=== PATIENT | male | born 1980 | race African-American/Black ===

== ENCOUNTER 2016-12-03 22:09 | Emergency (ER) | payer MEDICAID ==
[~2016-12-03] VITALS: Ht 182.9 cm; Wt 97.5 kg
[~2016-12-03 22:09] MED LIST: ANUSOL-HC CREAM30 GM RECTAL; ATARAX25 MG ORAL; CLINDAMYCIN HC150 MG ORAL; COLACE100 MG ORAL; ELIMITE 5% CREA60 GM TOPIC; MIRALAX17 GM ORAL; NYQUIL D COLD295 M1 PO; PODOFILOX3.5 ML TP; PREDNISONE20 MG ORAL; RECTICARE30 GM TP; TRUVADA 200 MG1 EAC1 ORAL
[2016-12-03 22:38] VITALS: BP 123/75
[2016-12-03] MEDS ORDERED: IBUPROFEN600 MG ORAL (22:48)
[2016-12-03 22:55] VITALS: BP 133/79
--- NOTE | 2016-12-03 22:59 | Emergency Room Report ---
History of Present Illness General Chief Complaint: Sore Throat Source: Patient Present Illness HPI 36YO M-F transgender patient with 2 days of sore throat, wants to "make sure its not infected." Denies assoc URI symptoms, difficulty controlling drooling, fever/chills, cough, chest pain, SOB, neck pain. Took motrin yesterday. Allergies: Coded Allergies: No Known Allergies (Verified , 12/03/16) Patient History Past Medical History: HIV Past Surgical History: none Pertinent Family History: none Social History: Denies: alcohol use, drug use, smoking Immunizations: UTD Reviewed Nursing Documentation: PMH: Agreed, PSxH: Agreed Nursing Documentation-PMH Hx Cardiac Problems: Yes - HIV Review of Systems All Other Systems: negative except mentioned in HPI Physical Exam Vital Signs Date Time Temp Pulse Resp B/P Pulse Ox O2 Delivery O2 Flow Rate FiO2 12/03/16 22:12 99.5 74 20 123/75 97 Room Air Sp02 EP Interpretation: reviewed, normal General Appearance: normal inspection, well appearing, no apparent distress, alert Head: atraumatic ENT: normal ENT inspection, hearing grossly normal, normal pharynx, no angioedema, normal voice, TMs + canals normal, uvula midline, moist mucus membranes Neck: normal inspection, full range of motion, supple, no bony tend Respiratory: normal inspection, lungs clear, normal breath sounds, no respiratory distress, no retraction, no wheezing Cardiovascular #1: regular rate, rhythm, no edema Gastrointestinal: normal inspection, normal bowel sounds, non tender, soft, no guarding, no hernia Genitourinary: no CVA tenderness Musculoskeletal: normal inspection, back normal, normal range of motion, Kalyan' s Sign negative Neurologic: normal inspection, alert, oriented x3, responsive, hearing aid repairer III-XII nml as tested, motor strength/tone normal, speech normal Psychiatric: normal inspection, judgement/insight normal, mood/affect normal Skin: normal inspection, normal color, no rash Lymphatic: normal inspection Medical Decision Making Diagnostic Impression: Primary Impression: Sore throat ER Course [id number] with 2 days sore throat No obvious source of bacterial infection in oropharynx, ears, lungs, skin, abdomen on exam VSS Low suspicion for acute strep or other bacterial process PMD followup closely DC home Understands to return for worsening symptoms - Ibuprofen as needed for sore t hroat Last Vital Signs Date Time Temp Pulse Resp B/P Pulse Ox O2 Delivery O2 Flow Rate FiO2 12/03/16 22:12 99.5 74 20 123/75 97 Room Air Status: improved Disposition: HOME, SELF-CARE Condition: Improved Scripts Ibuprofen* (MOTRIN*) 600 Mg Tablet 600 MG ORAL THREE TIMES A DAY for sore throat for 7 Days, #30 TAB 0 Refills Prov: JAYDEN LIPSCOMB M.D. 12/03/16 Patient Instructions: Sore Throat JAYDEN LIPSCOMB M.D. Dec 03, 2016 22:59
== END 2016-12-03 23:15 | disposition home or self-care (01) ==
LOC: EMR 22:58
DX: R07.0 Pain in throat (principal)
CPT/HCPCS: 99283

== ENCOUNTER 2017-01-24 22:01 | Emergency (ER) | payer MEDICAID ==
[~2017-01-24] VITALS: Ht 182.9 cm; Wt 113.4 kg
[~2017-01-24 22:01] MED LIST changes: +IBUPROFEN600 MG ORAL
[2017-01-24 22:15] VITALS: BP 132/91
[2017-01-24] MEDS ORDERED: CLINDAMYCIN HC300 MG ORAL (22:37)
--- NOTE | 2017-01-24 22:38 | Emergency Room Report ---
History of Present Illness General Chief Complaint: Toothache Source: Patient Present Illness HPI Is a 36-year-old transgender female with a history HIV. She presents with chief complaint of gum irritation. Been ongoing for months. No bleeding. No fever chills but no nausea no vomiting. She said the last time something like this happened she had thrush. Denies any other complaint. Has not seen a dentist. Allergies: Coded Allergies: No Known Allergies (Verified , 12/03/16) Patient History Past Medical History: see triage record, old chart reviewed, HIV Past Surgical History: other Pertinent Family History: none Social History: Denies: smoking Immunizations: other Reviewed Nursing Documentation: PMH: Agreed, PSxH: Agreed Nursing Documentation-PMH Past Medical History: No Stated History Hx Cardiac Problems: Yes - HIV Review of Systems Eye: Denies: blurred vision, eye pain ENT: Denies: ear pain, nose congestion, throat swelling Respiratory: Denies: cough, shortness of breath Cardiovascular: Denies: chest pain, palpitations Gastrointestinal: Denies: abdominal pain, diarrhea, nausea, vomiting Musculoskeletal: Denies: back pain, joint pain Skin: Denies: rash Neurological: Denies: headache, numbness Endocrine: Denies: increased thirst, increased urine Hematologic/Lymphatic: Denies: easy bruising All Other Systems: negative except mentioned in HPI Physical Exam Vital Signs Date Time Temp Pulse Resp B/P Pulse Ox O2 Delivery O2 Flow Rate FiO2 01/24/17 22:10 99.0 68 14 132/91 100 Room Air vitals normal Sp02 EP Interpretation: reviewed, normal General Appearance: well appearing, no apparent distress, alert Head: normocephalic, atraumatic Eyes: bilateral eye EOMI, bilateral eye PERRL ENT: hearing grossly normal, normal pharynx, other - No thrush. Gums are mildly irritated. There is a lot of plaque and yani on her teeth. Neck: full range of motion, supple, no meningismus Respiratory: chest non-tender, lungs clear, normal breath sounds Cardiovascular #1: regular rate, rhythm, no murmur Gastrointestinal: normal bowel sounds, non tender, no mass, no organomegaly, no bruit, non-distended Musculoskeletal: back normal, gait/station normal, normal range of motion Psychiatric: mood/affect normal Skin: warm/dry Medical Decision Making Diagnostic Impression: Primary Impression: Gingivitis, acute ER Course Patient with gingivitis. I see no evidence of thrush. We'll discharge home. Will refer to dentist. Last Vital Signs Date Time Temp Pulse Resp B/P Pulse Ox O2 Delivery O2 Flow Rate FiO2 01/24/17 22:10 99.0 68 14 132/91 100 Room Air Status: improved Disposition: HOME, SELF-CARE Condition: Stable Scripts Clindamycin Hcl (CLINDAMYCIN HCL) 300 Mg Capsule 300 MG ORAL THREE TIMES A DAY, #21 CAP Prov: FREDY ROTHMAN M.D. 01/24/17 Additional Instructions: Followup with your dentist HAR[facility]. Return if symptom worsen. FREDY ROTHMAN M.D. Jan 24, 2017 22:38
[2017-01-24 22:50] VITALS: BP 132/91
== END 2017-01-24 22:50 | disposition home or self-care (01) ==
LOC: EMR 22:25
DX: K05.00 Acute gingivitis, plaque induced (principal)
CPT/HCPCS: 99283

== ENCOUNTER 2017-02-04 21:28 | Emergency (ER) | payer MEDICAID ==
[~2017-02-04] VITALS: Ht 182.9 cm; Wt 90.7 kg
[~2017-02-04 21:28] MED LIST changes: +CLINDAMYCIN HC300 MG ORAL
[2017-02-04] MEDS ORDERED: NKM (21:45)
--- NOTE | 2017-02-04 22:09 | Emergency Room Report ---
History of Present Illness General Chief Complaint: Skin Rash/Abscess Source: Patient Present Illness HPI Patient presents with skin rash which has worsened over the last day. It has been present for a week. It itches. It is on the arms and torso. It is raised. He has a h/o psoriasis and he feels this is not the cause. He is worried about possible scabies. H/O HIV and non-compliant on meds for several months. Has appointment for later next week. No fevers, URI, cough, diarrhea, dysuria. No recent change in soaps, diet. Tetanus UTD. Allergies: Coded Allergies: No Known Allergies (Verified , 12/03/16) Patient History Past Medical History: see triage record Social History: Denies: drug use Social History Narrative transvestite. Recent move from [place] Reviewed Nursing Documentation: PMH: Agreed, PSxH: Agreed Review of Systems All Other Systems: negative except mentioned in HPI Physical Exam Vital Signs Date Time Temp Pulse Resp B/P Pulse Ox O2 Delivery O2 Flow Rate FiO2 02/04/17 21:43 98.4 67 14 127/88 99 Room Air Sp02 EP Interpretation: reviewed, normal General Appearance: well appearing, no apparent distress, GCS 15 Head: normocephalic, atraumatic Eyes: bilateral eye PERRL, bilateral eye normal inspection ENT: hearing grossly normal, normal pharynx, normal voice, moist mucus membranes Neck: full range of motion, supple Respiratory: no respiratory distress, speaking full sentences Cardiovascular #1: regular rate, rhythm Cardiovascular #2: 2+ radial (L) Gastrointestinal: normal inspection Musculoskeletal: digits/nails normal, gait/station normal, normal range of motion Neurologic: alert, oriented x3, normal gait, grossly normal Psychiatric: mood/affect normal Skin: rash - maculopapular rash forearms and trunk. Areas of scale ( suggestive parts = psoriatic), not in skin creased or between fingers Medical Decision Making Diagnostic Impression: Primary Impression: Psoriasis Additional Impressions: Possible scabies hiv non-compliant ER Course Patient with rash. DDx: scabies, allergic, psoriasis, cellulitis, HIV related amongst others. Some lesions psoriatic. No evidence of cellulitis. Will treat with prednisone and benadryl and prescribe Elimite. Discussed need for return to HIV meds. Also discussed might need biopsy if not better with treatment. Patient stable for outpatient observation and treatment. Last Vital Signs Date Time Temp Pulse Resp B/P Pulse Ox O2 Delivery O2 Flow Rate FiO2 02/04/17 22:36 98.4 14 127/88 99 Room Air 02/04/17 21:43 67 Status: improved Disposition: HOME, SELF-CARE Condition: Improved Scripts Permethrin* (ELIMITE*) 60 Gm Cream..g. 1 APPLIC TOPIC ONCE, #2 TUBE 0 Refills Apply cream from head to toe; leave on for 8-14 hours before washing off with water Prov: Ricardo Sterling M.D. 02/04/17 Diphenhydramine Hcl* (BENADRYL*) 25 Mg Capsule 25 MG ORAL Q6H Y for Itching, #20 CAP Prov: Ricardo Sterling M.D. 02/04/17 Prednisone* (PREDNISONE*) 20 Mg Tablet 20 MG ORAL DAILY for 5 Days, TAB 0 Refills Prov: Ricardo Sterling M.D. 02/04/17 Ricardo Sterling M.D. Feb 04, 2017 22:09
[2017-02-04] MEDS ORDERED: PREDNISONE20 MG ORAL (22:13)
[2017-02-04] MEDS ORDERED: BENADRYL25 MG ORAL (22:13)
[2017-02-04] MEDS ORDERED: PERMETHRIN60 GM TOPIC (22:13)
[2017-02-04] MEDS ORDERED: PredniSONE 20mg tab ORAL ONE (22:15)
[2017-02-04 22:36] VITALS: BP 127/88
== END 2017-02-04 22:36 | disposition home or self-care (01) ==
LOC: EMR 21:57
DX: L40.9 Psoriasis, unspecified (principal); Z91.14 Patient's other noncompliance with medication regimen
CPT/HCPCS: 99283

== ENCOUNTER 2017-06-15 17:30 | Emergency (ER) | payer MEDICAID, OTHER ==
[~2017-06-15] VITALS: Ht 182.9 cm; Wt 113.4 kg
[~2017-06-15 17:30] MED LIST changes: +BENADRYL25 MG ORAL; +NKM; +PERMETHRIN60 GM TOPIC
[2017-06-15] MEDS ORDERED: UNOBMED (17:44)
[2017-06-15] MEDS ORDERED: TRUVADA 200 MG1 EAC1 ORAL (17:44)
[2017-06-15] MEDS ORDERED: Lidocaine 1% MPF 10mg/ml 5ml INJ ONE (18:15)
--- NOTE | 2017-06-15 18:49 | Emergency Room Report ---
History of Present Illness General Chief Complaint: Male Urogenital Problems Source: Patient Present Illness HPI 36 YO Male presents to the ED c/o rash on scrotum and penis. In addition to small ulcer on right nipple. denies penile d/c and denies nipple d/c. takes Truvada. reports recent unprotected intercourse. Denies testicular swelling or pain. denies abdominal pain, swollen tender lymphnodes, rashes or lesions elsewhere on the body, denies rash on palms or soles. reports hx in the past of syphilis that presented with rash on palms and soles. Denies fevers, chills, N/ V Allergies: Coded Allergies: No Known Allergies (Verified , 12/03/16) Patient History Past Medical History: see triage record, HIV Past Surgical History: none Pertinent Family History: none Immunizations: UTD Reviewed Nursing Documentation: PMH: Agreed, PSxH: Agreed Review of Systems All Other Systems: negative except mentioned in HPI Physical Exam Vital Signs Date Time Temp Pulse Resp B/P (MAP) Pulse Ox O2 Delivery O2 Flow Rate FiO2 06/15/17 17:38 98.2 67 20 122/70 100 Room Air Sp02 EP Interpretation: reviewed, normal General Appearance: no apparent distress, alert, GCS 15, non-toxic Head: normocephalic, atraumatic Eyes: bilateral eye normal inspection, bilateral eye PERRL ENT: hearing grossly normal, normal voice Neck: full range of motion Respiratory: lungs clear, normal breath sounds, speaking full sentences Cardiovascular #1: regular rate, rhythm Gastrointestinal: normal bowel sounds, non tender, soft Rectal: deferred Genitourinary: no CVA tenderness, other - multiple painless ulcers on the scrotal sac, penis shaft and one on the glans various sizes from 2mm -7mm. no LAD, no discharge, no vesicles. no testicular pain or swelling Musculoskeletal: back normal, gait/station normal, normal range of motion, non- tender Neurologic: alert, oriented x3, responsive, motor strength/tone normal, sensory intact, normal gait, speech normal Skin: normal color, warm/dry, well hydrated, rash - multiple painless ulcers on the scrotal sac, penis shaft and one on the glans various sizes from 2mm - 7mm. no LAD, no discharge, no vesicles, abrasions - top of the right nipple, no evidence of soft tissue infection, no blisters or nipple discharge, no erythema. Lymphatic: no adenopathy Medical Decision Making PA Attestation Dr. Dodson is my supervising Physician whom patient management has been discussed with. Diagnostic Impression: Primary Impression: Rash of genital area Additional Impression: Contact with or exposure to venereal diseases ER Course 36 YO Male presents to the ED c/o rash on scrotum and penis. In addition to small ulcer on right nipple. denies penile d/c and denies nipple d/c. takes Truvada. reports recent unprotected intercourse. Denies testicular swelling or pain. denies abdominal pain, swollen tender lymphnodes, rashes or lesions elsewhere on the body, denies rash on palms or soles. reports hx in the past of syphilis that presented with rash on palms and soles. Denies fevers, chills, N/ V. Denies CP, Palpitations, LOC, AMS, dizziness, Changes in Vision, Sensation, paresthesias, or a sudden severe headache. Ddx considered but are not limited to UTi , Urethritis, LGV, STI, Stone, Cystitis, prostatitis Vital signs: are WNL, pt. is afebrile H&PE are most consistent with genital rash and exposure to venereal diseases. ORDERS: - UA : -Urine G & C Testing : pending ED INTERVENTIONS: -250mg Rocephin IM -2.4 IU PCN IM DISCHARGE: At this time pt. is stable for d/c to home. Will provide printed patient care instructions, and any necessary prescriptions. Care plan and follow up instructions have been discussed with the patient prior to discharge. Labs Test 06/15/17 17:50 Urine Color Brown Urine Appearance Clear Urine pH 5 (4.5-8.0) Urine Specific [place] 1.020 (1.005-1.035) Urine Protein 1+ (NEGATIVE) Urine Glucose (UA) Negative (NEGATIVE) Urine Ketones Negative (NEGATIVE) Urine Occult Blood 1+ (NEGATIVE) Urine Nitrite Negative (NEGATIVE) Urine Bilirubin 1+ (NEGATIVE) Urine Ictotest Negative Urine Urobilinogen 8 MG/DL (0.0-1.0) Urine Leukocyte Esterase 1+ (NEGATIVE) Urine RBC 2-4 /HPF (0 - 0) Urine WBC 2-4 /HPF (0 - 0) Urine Squamous Epithelial Cells Few /LPF (NONE/OCC) Urine Bacteria Few /HPF (NONE) Urine Mucus Few /LPF (NONE/OCC) Last Vital Signs Date Time Temp Pulse Resp B/P (MAP) Pulse Ox O2 Delivery O2 Flow Rate FiO2 06/15/17 17:38 98.2 67 20 122/70 100 Room Air Disposition: HOME, SELF-CARE Condition: Stable Scripts Bacitracin/Polymyxin B Sulfate (BACITRACIN-POLYMYXIN OINTMENT) 28.35 Gm Oint...g. 1 APPLIC TP BID, #28.3 GM Prov: Lanette Elizabeth 06/15/17 Doxycycline Hyclate* (VIBRAMYCIN*) 100 Mg Capsule 100 MG ORAL EVERY 12 HOURS for 7 Days, #14 CAP 0 Refills Prov: Lanette Elizabeth 06/15/17 Referrals: NOT CHOSEN IPA/MD,REFERRING (PCP) Patient Instructions: Sexually Transmitted Disease, [id number] Additional Instructions: Take medications as directed. Follow up with a Primary Care Provider in 3-5 days, even if your symptoms have resolved. --Please review list of primary care clinics, if you do not already have a primary care provider Return sooner to ED if new symptoms occur, or current symptoms become worse. - Please note that this Emergency Department Report was dictated using [employer] software, occasionally this can lead to erroneous entry secondary to interpretation by the dictation equipment. Lanette Elizabeth Jun 15, 2017 18:49
[2017-06-15 18:51] VITALS: BP 122/70
[2017-06-15 18:57] LABS: APPEARANCE,URINE CLEAR; KETONES,URINE NEGATIVE (NEGATIVE); LEUKOCYTE ESTERASE ,URINE 1+ (NEGATIVE); NITRITE,URINE NEGATIVE (NEGATIVE); PH,URINE 5 (4.5-8.0); PROTEIN,URINE 1+ (NEGATIVE); UROBILINOGEN,URINE 8 MG/DL (0.0-1.0)
[2017-06-15 19:08] LABS: BACTERIA,URINE FEW /HPF; ICTOTEST NEGATIVE; MUCUS,URINE FEW /LPF (NONE/OCC); SQUAMOUS EPITHELIAL CELL,UR FEW /LPF (NONE/OCC)
[2017-06-15] MEDS ORDERED: Bicillin LA 2,400,000 units IM ONE (19:15)
[2017-06-15] MEDS ORDERED: VIBRAMYCIN100 MG ORAL (19:19)
[2017-06-15] MEDS ORDERED: BACITRACIN-P28.35 GM TP (19:19)
[2017-06-15 19:40] VITALS: BP 122/70
== END 2017-06-15 19:40 | disposition home or self-care (01) ==
LOC: EMR 18:00
DX: R21 Rash and other nonspecific skin eruption (principal); Z20.2 Contact with and (suspected) exposure to infections with a predominantly sexual mode of transmission
CPT/HCPCS: 81003; 96372; 99283; J0696

== ENCOUNTER 2017-07-11 23:00 | Emergency (ER) | payer OTHER ==
[~2017-07-11] VITALS: Ht 182.9 cm; Wt 81.6 kg
[~2017-07-11 23:00] MED LIST changes: +BACITRACIN-P28.35 GM TP; +UNOBMED; +VIBRAMYCIN100 MG ORAL
[2017-07-11 23:13] VITALS: BP 127/81
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
[2017-07-11] MEDS ORDERED: IBUPROFEN600 MG ORAL (23:35)
[2017-07-11] MEDS ORDERED: VALACYCLOVIR500 MG ORAL (23:35)
[2017-07-12 00:14] VITALS: BP 121/74
--- NOTE | 2017-07-12 09:15 | Diagnostic Imaging Report ---
Indication: Reason For Exam: TRAUMA Technique: XRAY Knee 3v LT Comparison: None. Findings: The osseous structures are intact. There is no fracture or destruction. The visualized joints are normal. There is fullness of the suprapatellar pouch slightly. Impression: Slight fullness of the suprapatellar pouch. The possibility of a small knee effusion cannot be excluded. Otherwise negative.
== END 2017-07-12 00:15 | disposition home or self-care (01) ==
LOC: EMR 23:30
DX: A60.00 Herpesviral infection of urogenital system, unspecified (principal); S80.02XA Contusion of left knee, initial encounter; X58.XXXA Exposure to other specified factors, initial encounter; Y92.9 Unspecified place or not applicable
CPT/HCPCS: 99283

== ENCOUNTER 2017-09-10 22:32 | Emergency (ER) | payer OTHER ==
[~2017-09-10] VITALS: Ht 182.9 cm; Wt 113.4 kg
[~2017-09-10 22:32] MED LIST changes: +VALACYCLOVIR500 MG ORAL
--- NOTE | 2017-09-10 22:42 | Emergency Room Report ---
History of Present Illness General Chief Complaint: To Be Triaged Present Illness HPI 36YO transgender [id number] patient presents with Positive test for syphilis yesterday at outpatient clinic, [facility] She denies discharge, any symptoms She had recent unprotected sex and this testing was routine, she states that she usually has test done on a regular basis because she sexual active Endorses previous infection and treatment for similar Allergies: Coded Allergies: No Known Allergies (Verified , 07/11/17) Patient History Past Medical History: old chart reviewed Past Surgical History: none Pertinent Family History: none Social History: Denies: smoking, alcohol use, drug use Immunizations: UTD Reviewed Nursing Documentation: PMH: Agreed; PSxH: Agreed Review of Systems All Other Systems: negative except mentioned in HPI Physical Exam Sp02 EP Interpretation: reviewed, normal General Appearance: normal inspection, well appearing, no apparent distress, alert, GCS 15, non-toxic Head: normocephalic, atraumatic Eyes: bilateral eye PERRL, bilateral eye EOMI ENT: normal ENT inspection, hearing grossly normal, normal pharynx, no angioedema, normal voice, TMs + canals normal, uvula midline, moist mucus membranes Neck: normal inspection, full range of motion, supple, thyroid normal, no meningismus, no bony tend Respiratory: normal inspection, lungs clear, normal breath sounds, no rhonchi, no respiratory distress, no retraction, no accessory muscle use, no wheezing, speaking full sentences Cardiovascular #1: regular rate, rhythm, no edema, no JVD, normal capillary refill Gastrointestinal: normal inspection, normal bowel sounds, non tender, soft, no mass, no peritonitis, non-distended, no guarding, no hernia, no pulsatile mass Genitourinary: no CVA tenderness Musculoskeletal: normal inspection, back normal, normal range of motion, no calf tenderness, pelvis stable, Kalyan's Sign negative Neurologic: normal inspection, alert, oriented x3, responsive, 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, motor strength/tone normal, cerebellar normal, normal gait, speech normal Psychiatric: normal inspection, judgement/insight normal, mood/affect normal, no suicidal/homicidal ideation, no delusions Skin: normal inspection, normal color, no rash Lymphatic: normal inspection, no adenopathy Medical Decision Making Diagnostic Impression: Primary Impression: Syphilis ER Course Vital signs stable, afebrile Asymptomatic Reported history of positive syphilis test at outpatient clinic Was treated with IM penicillin G in the ER Will follow-up at outpatient clinic as needed ER course: Patient has remained stable during ED stay. Disposition: Patient is to be discharged to home. Patient is instructed to follow up with their primary care doctor within 5 days. Strict return precautions discussed with patient such as fever, chills, worsening/severe pain, nausea, vomiting, which may indicate severe illness. Patient verbalizes understanding and agrees with plan. Please note that this Emergency Department Report was dictated using [employer] technology software, occasionally this can lead to erroneous entry secondary to interpretation by the dictation equipment Status: improved Disposition: HOME, SELF-CARE JAYDEN LIPSCOMB M.D. Sep 10, 2017 22:42
[2017-09-10] MEDS ORDERED: Bicillin LA 2,400,000 units IM ONE (22:45)
[2017-09-11 00:14] VITALS: BP 129/79
== END 2017-09-10 23:00 | disposition home or self-care (01) ==
LOC: EMR 22:50
DX: A53.9 Syphilis, unspecified (principal)
CPT/HCPCS: 99282

== ENCOUNTER 2018-06-09 02:55 | Emergency (ER) | payer SELFPAY ==
[~2018-06-09] VITALS: Ht 182.9 cm; Wt 112.9 kg
[2018-06-09 03:12] VITALS: BP 135/74
[2018-06-09] MEDS ORDERED: Bicillin LA 2.4MMU/4ML SYR IM ONE (03:45)
[2018-06-09 04:00] VITALS: BP 129/89
--- NOTE | 2018-06-09 04:55 | Emergency Room Report ---
History of Present Illness General Chief Complaint: Male Urogenital Problems Source: Patient Present Illness HPI 37-year-old transgender male presenting with rash. Notes noting red spots to his genital area times one day. They're itchy. Denies any discharge. States that he's had similar presentation in the past and was diagnosed with syphilis. Was given penicillin injection with symptoms improved. Denies any pain. Denies any fevers or chills. Denies any scrotal pain. No other aggravating relieving factors. Denies any other associated symptoms Allergies: Coded Allergies: No Known Allergies (Verified , 07/11/17) Patient History Past Medical History: none Past Surgical History: none Pertinent Family History: none Social History: Denies: smoking, alcohol use, drug use Immunizations: UTD Reviewed Nursing Documentation: PMH: Agreed; PSxH: Agreed Review of Systems All Other Systems: negative except mentioned in HPI Physical Exam Vital Signs Date Time Temp Pulse Resp B/P (MAP) Pulse Ox O2 Delivery O2 Flow Rate FiO2 06/09/18 02:59 97.9 72 16 112/69 96 Room Air Sp02 EP Interpretation: reviewed, normal General Appearance: no apparent distress, alert, GCS 15, non-toxic Head: normocephalic, atraumatic Eyes: bilateral eye normal inspection, bilateral eye PERRL ENT: hearing grossly normal, normal pharynx, no angioedema, normal voice Neck: full range of motion, supple/symm/no masses Respiratory: chest non-tender, lungs clear, normal breath sounds, speaking full sentences Cardiovascular #1: regular rate, rhythm, no edema Cardiovascular #2: 2+ carotid (R), 2+ carotid (L), 2+ radial (R), 2+ radial (L) , 2+ dorsalis pedis (R), 2+ dorsalis pedis (L) Gastrointestinal: normal bowel sounds, non tender, soft, non-distended, no guarding, no rebound Rectal: deferred Genitourinary: normal inspection, no CVA tenderness Musculoskeletal: back normal, gait/station normal, normal range of motion, non- tender Neurologic: alert, oriented x3, responsive, motor strength/tone normal, sensory intact, speech normal Psychiatric: judgement/insight normal, memory normal, mood/affect normal, no suicidal/homicidal ideation Reflexes: 3+ bicep (R), 3+ bicep (L), 3+ tricep (R), 3+ tricep (L), 3+ knee (R) , 3+ knee (L) Skin: normal color, warm/dry, well hydrated, rash Lymphatic: no adenopathy Medical Decision Making Diagnostic Impression: Primary Impression: Early syphilis, symptomatic Additional Impression: rash ER Course Hospital Course 37 yo M presents with rash to genital area. History of unprotected sex Differential diagnoses include: trichimonas, gonorrhea, chlamydia Clinical course Patient placed on stretcher. After initial history physical exam reveals a transgender male in no acute distress. No scrotal tenderness. No urethral discharge We'll treat clinically for syphilis. Given penicillin IM here Patient needs to follow-up with STD clinic or PMD for definitive testing Diagnosis - syphillis Stable and discharged home. Instructed to followup with PMD. Return to ED if symptoms recur or worsen Last Vital Signs Date Time Temp Pulse Resp B/P (MAP) Pulse Ox O2 Delivery O2 Flow Rate FiO2 06/09/18 04:00 98.5 85 18 129/89 98 Room Air Status: improved Disposition: HOME, SELF-CARE Condition: Stable Referrals: NOT CHOSEN IPA/,REFERRING (PCP) Patient Instructions: Syphilis Bandar Ortiz MD Jun 09, 2018 04:55
== END 2018-06-09 04:29 | disposition home or self-care (01) ==
LOC: EMR 03:32
DX: A51.9 Early syphilis, unspecified (principal); R21 Rash and other nonspecific skin eruption
CPT/HCPCS: 96372; 99284

== ENCOUNTER 2018-07-07 20:13 | Emergency (ER) | payer SELFPAY ==
[~2018-07-07] VITALS: Ht 182.9 cm; Wt 97.5 kg
[2018-07-07 20:22] VITALS: BP 132/70
--- NOTE | 2018-07-07 20:22 | NUR ---
ED Nurse Note: PT walked into ER stating that she has a generalized rash that started yesturday. rash is located in chest area and L wrist. pt state she does not know what caused rash. no active bleeding rash. Pt si AO x 4times, VSS, on room air no distress. JUAND seen Pt at bedside.
--- NOTE | 2018-07-07 21:35 | Emergency Room Report ---
History of Present Illness General Chief Complaint: Skin Rash/Abscess Source: Patient Present Illness HPI Itching rash with whelps abdomen and chest. No fevers. Has had once before. Use of [employer] body lotion/sent. No wheezing, throat swelling, dizziness, fevers, chills, nausea, vomiting, diarrhea or dysuria. No treatment used. He denies pain. HIV. Viral load neg. On medications. Patient identifies as a woman. Allergies: Coded Allergies: No Known Allergies (Verified , 07/11/17) Patient History Past Medical History: see triage record Social History: Denies: smoking Social History Narrative transgender Reviewed Nursing Documentation: PMH: Agreed; PSxH: Agreed Review of Systems All Other Systems: negative except mentioned in HPI Physical Exam Vital Signs Date Time Temp Pulse Resp B/P (MAP) Pulse Ox O2 Delivery O2 Flow Rate FiO2 07/07/18 20:18 98.1 70 14 140/73 99 Room Air Sp02 EP Interpretation: reviewed, normal General Appearance: well appearing, no apparent distress Head: normocephalic, atraumatic Eyes: bilateral eye normal inspection, bilateral eye PERRL ENT: hearing grossly normal, normal pharynx, no angioedema, normal voice, moist mucus membranes Neck: full range of motion, supple Respiratory: lungs clear, normal breath sounds, no respiratory distress, speaking full sentences Cardiovascular #1: regular rate, rhythm Gastrointestinal: normal inspection Musculoskeletal: digits/nails normal, gait/station normal, normal range of motion Neurologic: alert, oriented x3, normal gait, grossly normal Psychiatric: mood/affect normal Skin: warm/dry, other - wheel flare and excoriations chest Medical Decision Making Diagnostic Impression: Primary Impression: Allergic reaction Qualified Codes: T78.40XA - Allergy, unspecified, initial encounter ER Course Patient with prutiris and rash chest after use of product. Differential includes hives, allergic reaction amongst others. Clinically this is an allergic reaction to a product use. Steroids and Benadryl and topical treatment are indicated. Discussed need for follow-up and avoidance of use of that product. Patient stable for outpatient observation and treatment. Last Vital Signs Date Time Temp Pulse Resp B/P (MAP) Pulse Ox O2 Delivery O2 Flow Rate FiO2 07/07/18 21:50 98.4 76 16 132/70 99 Room Air Status: improved Disposition: HOME, SELF-CARE Condition: Improved Scripts Hydrocortisone (Hydrocortisone Cream 2.5%) Y Cream.appl 1 APPLIC TP BID, #30 GM 1 Refill Prov: Ricardo Sterling MD 07/07/18 Diphenhydramine Hcl* (BENADRYL*) 25 Mg Capsule 25 MG ORAL Q6H PRN for Itching, #20 CAP Prov: Ricardo Sterling MD 07/07/18 Prednisone* (PREDNISONE*) 20 Mg Tablet 40 MG ORAL DAILY, #10 TAB Prov: Ricardo Sterling MD 07/07/18 Referrals: NOT CHOSEN IPA/,REFERRING (PCP) Ricardo Sterling MD Jul 07, 2018 21:35
[2018-07-07] MEDS ORDERED: BENADRYL25 MG ORAL (21:37)
[2018-07-07] MEDS ORDERED: HYDROCORTISONE30 G2 TP (21:37)
[2018-07-07] MEDS ORDERED: PREDNISONE20 MG ORAL (21:37)
[2018-07-07 21:50] VITALS: BP 132/70
--- NOTE | 2018-07-07 21:50 | NUR ---
ED Nurse Note: Pt cleared DC by ERMBuddy. Pt is AO x 4times, VSS, on room air no distress. Belongings given to Pt. DC and meds instructions given to Pt, Pt understood well. ID bend removed. Pt walkled out unit with steady gait.
== END 2018-07-07 21:50 | disposition home or self-care (01) ==
LOC: EMR 20:33
DX: T78.40XA Allergy, unspecified, initial encounter (principal); X58.XXXA Exposure to other specified factors, initial encounter
CPT/HCPCS: 99282; J7512

== ENCOUNTER 2018-10-04 22:41 | Emergency (ER) | payer SELFPAY ==
[~2018-10-04] VITALS: Ht 182.9 cm; Wt 113.4 kg
[~2018-10-04 22:41] MED LIST changes: +HYDROCORTISONE30 G2 TP
[2018-10-04 22:50] VITALS: BP 117/82
--- NOTE | 2018-10-04 22:50 | NUR ---
ER Nurse Note: Pt came from home c/o right eye discharge since 09/29. Pt stated the make up being used and may irriate both eyes but affects the right eye more. Drainage appearent in right eye. Pt denies pain, trauma to eyes, blurry vision, double vision. ERMD at pt side; will continue to montior.
[2018-10-04] MEDS ORDERED: OLOPATADINE HCL5 ML OP (22:57)
[2018-10-04 23:05] VITALS: BP 117/82
--- NOTE | 2018-10-04 23:05 | NUR ---
ER Nurse Note: Pt seen, treated, medially cleared for discharge by ERMD. Discharge instructions and prescriptions given with repeat verbaliazation by pt. Instructed pt to follow up with primary care provider within one week. Pt understood all teaching. Visual acuity checked. Pt a&ox4, VSS, no signs of distress. Pt denies pain. ID band removed. Pt left with all belongings with steady gait via own transportation.
--- NOTE | 2018-10-05 00:05 | Emergency Room Report ---
History of Present Illness General Chief Complaint: Eye Problems Source: Patient Present Illness HPI Patient is a 37-year-old individual who presented after increased bilateral eye redness. Patient had no change in vision. Had noted increased tearing as well as clear discharge. This been present for approximately 2-3 days.She denies any photophobia or flashing lights or floaters.Patient had not been having any vomiting or diarrhea. Patient had prior history of HIV disease. Allergies: Coded Allergies: No Known Allergies (Verified , 07/11/17) Patient History Past Medical History: see triage record Reviewed Nursing Documentation: PMH: Agreed; PSxH: Agreed Review of Systems All Other Systems: negative except mentioned in HPI Physical Exam Vital Signs Date Time Temp Pulse Resp B/P (MAP) Pulse Ox O2 Delivery O2 Flow Rate FiO2 10/04/18 22:44 99.1 78 16 117/82 95 Room Air Sp02 EP Interpretation: reviewed, normal General Appearance: normal inspection, well appearing, no apparent distress, alert, GCS 15 Head: atraumatic Eyes: bilateral eye PERRL ENT: normal ENT inspection, hearing grossly normal, normal voice Neck: normal inspection, full range of motion, supple, no bony tend Respiratory: normal inspection, lungs clear, normal breath sounds, no respiratory distress, no retraction, no wheezing Cardiovascular #1: regular rate, rhythm, no edema Gastrointestinal: normal inspection, normal bowel sounds, non tender, soft, no guarding, no hernia Genitourinary: no CVA tenderness Musculoskeletal: normal inspection, back normal, normal range of motion Neurologic: normal inspection, alert, responsive, speech normal Psychiatric: normal inspection, judgement/insight normal, mood/affect normal Skin: normal inspection, normal color, no rash Medical Decision Making Diagnostic Impression: Primary Impression: Allergic conjunctivitis ER Course Patient presented for red eye. Differential diagnosis included but wasn't limited to glaucoma, iritis, corneal abrasion, bacterial conjunctivitis, viral conjunctivitis. Patient has a benign exam and does not appear to require any further imaging or laboratory testing at this time. Patient's visual acuity was noted to be better than 20/20 in both eyes. Patient does not appear to have any evidence of bacterial infection at this time. Patient was given prescription for olopatadine. Patient was to follow-up with ophthalmology for recheck Last Vital Signs Date Time Temp Pulse Resp B/P (MAP) Pulse Ox O2 Delivery O2 Flow Rate FiO2 415/19 23:05 99.1 72 16 117/82 95 Room Air Status: improved Disposition: HOME, SELF-CARE Condition: Stable Scripts Olopatadine HCl (Olopatadine HCl) 5 Ml Drops 1 DRP OP TWICE A DAY for redness, #5 ML Prov: Juan Miguel Dodson MD 10/04/18 Referrals: NOT CHOSEN IPA/,REFERRING (PCP) Patient Instructions: Allergic Conjunctivitis Juan Miguel Dodson MD Oct 05, 2018 00:05
== END 2018-10-04 23:10 | disposition home or self-care (01) ==
LOC: EMR 23:00
DX: H10.13 Acute atopic conjunctivitis, bilateral (principal); B20 Human immunodeficiency virus [HIV] disease
CPT/HCPCS: 99282

== ENCOUNTER 2020-07-14 21:47 | Emergency (ER) | payer MEDICAID ==
[~2020-07-14] VITALS: Ht 182.9 cm; Wt 113.4 kg
[~2020-07-14 21:47] MED LIST changes: +CIPROFLOXACIN500 M2 ORAL; +METRONIDAZOLE500 MG ORAL; +OLOPATADINE HCL5 ML OP; +ONDANSETRON ODT4 MG BC
--- NOTE | 2020-07-14 22:38 | NUR ---
ED Nurse Note: pt presents to ED c/o rash on forehead and chest that she noticed last PM. pt states that it is itchy, denies px. pt states that she has been using topical hydrocortisone over the area with some relief of the itching. skin appears to be intact with some hives
[2020-07-14 22:39] VITALS: BP 127/86
[2020-07-14] MEDS ORDERED: BENADRYL25 MG ORAL (22:41)
[2020-07-14] MEDS ORDERED: PREDNISONE20 MG ORAL (22:41)
--- NOTE | 2020-07-14 22:46 | Emergency Room Report ---
History of Present Illness General Chief Complaint: Skin Rash/Abscess Present Illness HPI 39-year-old male to female transition here with urticaria. Patient has had allergic reactions multiple times in the past. Does not know what they are allergic to. Has been using a new soap that they believe may be the cause of the allergy. Allergic reaction started about 24 hours ago. Patient has not been using any medications at home. Only complaint is skin irritation. No fevers, chills, chest pain, palpitation, shortness of breath, tongue or lip swelling, throat tightness, voice change, lightheadedness, back pain, abdominal pain, nausea, vomiting, diarrhea, dysuria. Allergies: Coded Allergies: No Known Allergies (Verified , 06/24/19) COVID-19 Screening Contact w/high risk pt: No Experienced COVID-19 symptoms?: No COVID-19 Testing performed RESOURCE ANALYST: No Nursing Documentation-PMH Hx Cardiac Problems: Yes - HIV+ Review of Systems All Other Systems: negative except mentioned in HPI Physical Exam Vital Signs Date Time Temp Pulse Resp B/P (MAP) Pulse Ox O2 Delivery O2 Flow Rate FiO2 07/14/20 22:33 98.4 87 18 127/86 (100) 98 Room Air Sp02 EP Interpretation: reviewed, normal General Appearance: no apparent distress, alert, non-toxic Head: normocephalic, atraumatic Eyes: bilateral eye normal inspection, bilateral eye PERRL ENT: hearing grossly normal, normal pharynx, no angioedema, normal voice Neck: full range of motion, supple/symm/no masses Respiratory: chest non-tender, lungs clear, normal breath sounds, speaking full sentences Cardiovascular #1: regular rate, rhythm, no edema Cardiovascular #2: 2+ carotid (R), 2+ carotid (L), 2+ radial (R), 2+ radial (L), 2+ dorsalis pedis (R), 2+ dorsalis pedis (L) Gastrointestinal: normal bowel sounds, non tender, soft, non-distended, no guarding, no rebound Rectal: deferred Genitourinary: normal inspection, no CVA tenderness Musculoskeletal: back normal, normal range of motion, gait/station normal, non- tender Neurologic: alert, motor strength/tone normal, oriented x3, sensory intact, responsive, speech normal Psychiatric: judgement/insight normal, memory normal, mood/affect normal, no suicidal/homicidal ideation Skin: other - Urticaria on chest, abdomen, lower back bilaterally. No open wounds. No angioedema of the face Lymphatic: no adenopathy Medical Decision Making Diagnostic Impression: Primary Impression: Allergic reaction ER Course 39-year-old male to female transition here with allergic reaction. Patient has had multiple allergic reactions in the past. Has been using a new soap that they believe may be the cause of the allergic reaction. Does not take any medications. Patient refusing Benadryl. Given a dose of prednisone in the emergency department and prescription for 5-day course of prednisone. No evidence of angioedema. Lungs were clear. Patient given information to follow- up with primary care. Discharged in good condition. Last Vital Signs Date Time Temp Pulse Resp B/P (MAP) Pulse Ox O2 Delivery O2 Flow Rate FiO2 07/14/20 22:39 98.4 18 127/86 98 Room Air 07/14/20 22:33 87 Disposition: HOME, SELF-CARE Condition: Stable Scripts Diphenhydramine Hcl* (BENADRYL*) 25 Mg Capsule 25 MG ORAL Q6H PRN for Itching for 7 Days, CAP Prov: Peter Gill M.D. 07/14/20 Prednisone* (PREDNISONE*) 20 Mg Tablet 40 MG ORAL DAILY, #5 TAB Prov: Peter Gill M.D. 07/14/20 Referrals: NON PHYSICIAN (PCP) [facility] Olayinka [facility] Patient Instructions: Peter Arboleda M.D. Jul 14, 2020 22:45
--- NOTE | 2020-07-14 22:48 | NUR ---
ER DISCHARGE NOTE: Patient is cleared to be discharged per ERMD, pt is aox4, on room air, with stable vital signs. pt was given dc and prescription instructions, pt was able to verbalize understanding, pt id band removed without complications. pt is able to ambulate with steady gait. pt took all belongings.
[2020-07-14 22:49] VITALS: BP 127/86
== END 2020-07-14 22:50 | disposition home or self-care (01) ==
LOC: EMR 22:15
DX: T78.49XA Other allergy, initial encounter (principal); B20 Human immunodeficiency virus [HIV] disease; X58.XXXA Exposure to other specified factors, initial encounter
CPT/HCPCS: J7512; Z7502; 99282